=== PATIENT | female | born 1950 | race Caucasian/White ===

== ENCOUNTER 2020-08-15 07:57 | Emergency (ER) | payer MEDICARE, SELFPAY ==
[2020-08-15 08:11] VITALS: BP 168/71; PULSE 90; RESP 18; TEMP 36.7; O2SAT 99
[2020-08-15] MEDS: ONDANSETRON 4 MG/2 ML INJ IV (08:20)
[2020-08-15] MEDS: SODIUM CHLORIDE 0.9% 1,000 ML 1000 ML IV (08:20)
--- NOTE | 2020-08-15 08:21 | DI.RAD.S_ITS ---
PROCEDURE: XR ACUTE ABDOMEN SERIES INDICATIONS: vomiting 4-5 days, dehydrated TECHNIQUE: One view chest and two views of the abdomen were acquired. COMPARISON: None. FINDINGS: Surgical changes and devices: Cholecystectomy clips are seen. Chest: Lungs are clear. Heart size is normal. No pleural effusions. No pneumoperitoneum. Abdomen: Bowel gas pattern is normal. No suspicious calcifications. Visualized solid organ contours appear normal. Bones: No suspicious bony lesions. S-shaped scoliotic curvature is seen. Age-appropriate bony degenerative changes are seen. IMPRESSION: A nonobstructive bowel gas pattern is seen. As clinically appropriate, please consider a repeat plain film study or a dedicated CT of the abdomen and pelvis, if the patient's symptoms persist or worsen. Postoperative and degenerative changes are seen. Dictated by: Fransisco Carey M.D. on 08/15/2020 at 8:17 Approved by: Fransisco Carey M.D. on 08/15/2020 at 8:17
--- NOTE | 2020-08-15 08:23 | ED_ITS ---
HPI - Nausea/Vomiting/Diarrhea General Chief complaint: Weakness Stated complaint: vomiting 4-5days, dehydrated Time Seen by Provider: 08/15/20 08:13 Source: patient Mode of arrival: Wheelchair Limitations: no limitations History of Present Illness HPI Narrative: This is a 70-year-old female comes emergency department with complaint of vomiting for the past 4-5 days. Patient was concerned she may be dehydrated. Patient states that her and her flew from [place] to visit the state and the family member in [place]. She has not seen that family member yet. She states while she was flying she started throwing up. Since then she has continued to have vomiting intermittently daily. Overnight she th rew up 3 times. Patient states she has had some small stools but not anything significant she has not appreciated any diarrhea. She is unsure if she is passing gas regularly. She denies any headache, chest pain, back pain, flank pain or abdominal pain. She states she is really feel nauseated she just throws up. She denies any fevers, she denies any cold cough or congestion like symptoms. No rashes or skin changes. She denies any urinary symptoms. She states she has been making urine has been clear. She has not had similar symptoms in the past. She does take medication for blood pressure, dyslipidemia and diabetes type 2. She does not take an aspirin or any other blood thinners. She denies any cardiac history otherwise and denies any prior cardiac stents or catheterization. She has had a cholecystectomy. Denies any tobacco, alcohol or illicit. She lives in [place] with her who is in the room with her. Related Data Home Medications Medication Instructions Recorded Confirmed metoprolol tartrate 25 mg PO DAILY 08/15/20 08/15/20 omeprazole 40 mg PO DAILY 08/15/20 08/15/20 simvastatin [Zocor] 20 mg PO DAILY 08/15/20 08/15/20 sitagliptin-metformin [Janumet] 1 tab PO DAILY 08/15/20 08/15/20 valsartan-hydrochlorothiazide 1 tab PO DAILY 08/15/20 08/15/20 [Diovan HCT] Allergies Allergy/AdvReac Type Severity Reaction Status Date / Time No Known Drug Allergies Allergy Verified 08/15/20 08:18 Review of Systems Review of Systems ROS Unobtainable: All systems reviewed & are unremarkable except as noted in HPI and below Constitutional Constitutional: Denies chills, Denies fever(s), Denies lethargy and Denies weakness Neurologic Neurologic: Denies weakness Patient History Medical History (Updated 08/15/20 @ 09:15 by Isela Carter DO) Diabetes (Acute) Dyslipidemia (Acute) Hypertension (Acute) Surgical History (Updated 08/15/20 @ 08:27 by Isela Carter DO) Hx of cholecystectomy (Acute) Social History (Updated 08/15/20 @ 08:28 by Isela Carter DO) marital status: household members: spouse Smoking Status: Never smoker Smoking Status: Never smoker alcohol intake frequency: other (denies) Substance Use Type: does not use Exam Narrative Exam Narrative: GEN: well nourished, well appearing obese female, alert and oriented x 3, patient appears to be in mild distress. HEENT: Atraumatic, pupils are equal round reactive to light, extraocular movements are intact, nares are clear. HEART: Regular rate and rhythm without murmur, clicks, rubs. LUNGS:Lungs clear to auscultation, no wheezes, rales, crackles, chest moves symmetrically, no crackles wheezes or rales, no accessory muscle use ABD:bowel sounds normal, nondistended, soft, non-tender, no guarding, rebound, rigidity, no masses noted, no hepatosplenomegaly :No CVA tenderness, MSCL: Non-tender, no muscle atrophy, muscles strength 5/5 upper and lower extremities, full range of motion, normal gait NEURO:CN 2-12 intact, sensation normal. SKIN: No turgor, small area of ecchymosis on the anterior rose that is 2.5 cm in size with no hematoma. Initial Vital Signs Initial Vital Signs: Vital Signs Temperature 98.1 F 08/15/20 08:11 Pulse Rate 90 08/15/20 08:11 Respiratory Rate 18 08/15/20 08:11 Blood Pressure 168/71 H 08/15/20 08:11 Pulse Oximetry 99 08/15/20 08:11 Course Orders Ordered: Discontinued Medications Sodium Chloride (Normal Saline 0.9%) 1,000 mls @ 1,000 mls/hr IV BOLUS ONE Stop: 08/15/20 09:17 Last Infusion: 08/15/20 10:07 Dose: 0 mls/hr Documented by: Admin: 08/15/20 08:20 Dose: 1,000 mls/hr Documented by: UGO Sodium Chloride (Normal Saline 0.9%) 1,000 mls @ 1,000 mls/hr IV BOLUS ONE Stop: 08/15/20 09:20 Last Admin: 08/15/20 10:13 Dose: Not Given Documented by: UGO Sodium Chloride (Normal Saline 0.9%) 1,000 mls @ 150 mls/hr IV CONT BRAYAN Last Admin: 08/15/20 10:08 Dose: 150 mls/hr Documented by: UGO Ondansetron HCl (Zofran) 4 mg IV NOW ONE Stop: 08/15/20 08:10 Last Admin: 08/15/20 08:20 Dose: 4 mg Documented by: UGO Reevaluation(s) Reevaluation #1: Patient updated on labs, she states she had labs checked 2 months ago and they were normal with her primary care will attempt to get labs but weekends primary care office so they are likely closed. Discussed with patient will be placing a Taylor catheter and adding a CT scan for further ev aluation and plan to admit or transfer patient depending on findings. Patient aware and comfortable with plan. Time: 09:07 Reevaluation #2: Patient doing well, she has not had any urine output at this time. She has had 1L in addition to several 100 cc of fluid. Time: 11:18 Reevaluation #3: Spoke with Dr. Ye from [facility] who accepts for transfer. Reviewed all labs and imaging. Patient has not had any urine output, plan to continue fluids at 150cc/hr. Time: 11:49 Consultations Consultation #1: Spoke with Dr. Norman, who defers admission here and would like us to try elsewhere with nephrology is patient creatinine is quite elevated. She has a low-sodium but otherwise normal electrolytes but has not made any urine output so far and Dr. Norman is concerned she may potentially need dialysis down the road. Time: 11:29 Vital Signs Vital signs: Vital Signs - 8 hr 08/15/20 13:19 Pulse Rate 89 Respiratory Rate 18 Blood Pressure 127/61 Pulse Oximetry 99 MDM - Nausea/Vomiting/Diarrhea Lab Data Attestation: I reviewed the patient's lab results. Result diagrams: 08/15/20 08:15 08/15/20 08:15 Labs: Lab Results 08/15/20 08/15/20 08/15/20 Range/Units 08:15 08:15 08:15 WBC 8.9 (4.5-11.0) X10^3/uL RBC 4.20 (4.0-5.2) X10^6/uL Hgb 11.6 L (12.0-16.0) g/dL Hct 35.3 L (36-46) % MCV 84.1 (80-100) fL MCH 27.6 (26-34) PG MCHC 32.9 (30-36) % RDW 13.7 (11.6-14.8) % Plt Count 236 (150-400) X10^3/uL Neut % (Auto) 69.5 (50-75) % Lymph % (Auto) 21.7 L (25-40) % [place] % (Auto) 7.4 (3-14) % Eos % (Auto) 0.9 L (2-4) % Baso % (Auto) 0.5 (0-2) % Neut # (Auto) 6200 (9146-5796) /uL Lymph # (Auto) 1900 (1766-0229) /uL [place] # (Auto) 700 (0-900) /uL Eos # (Auto) 100 (0-450) /uL Baso # (Auto) 0 (0-100) /uL PT 11.4 (10.1-12.7) SECONDS INR 1.0 (0.9-1.3) APTT 32 (26.4-36.2) SECONDS Sodium 130 L (137-145) mmol/L Potassium 3.9 (3.4-5.1) mmol/L Chloride 99 (98-107) mmol/L Carbon Dioxide 16 L (22-32) mmol/L BUN 58 H (7-17) mg/dL Creatinine 10.82 H* (0.52-1.04) mg/dL Estimated GFR 3.5 L (>60) mL/min BUN/Creatinine Ratio 5.4 L (6-22) Glucose 132 H (80-110) mg/dL Calcium 8.4 (8.4-10.2) mg/dL Total Bilirubin 0.4 (0.2-1.3) mg/dL AST 25 (14-36) IU/L ALT 12 (<35) IU/L Alkaline Phosphatase 65 (38-126) U/L Total Protein 6.9 (6.3-8.2) g/dL Albumin 3.9 (3.5-5.0) g/dL Globulin 3.0 (1.7-4.1) g/dL Albumin/Globulin Ratio 1.3 (1.0-2.8) Lipase 112 (23-300) U/L TSH (0.47-4.68) uIU/mL COVID-19 PCR (Negative) 08/15/20 08/15/20 Range/Units 08:15 08:27 WBC (4.5-11.0) X10^3/uL RBC (4.0-5.2) X10^6/uL Hgb (12.0-16.0) g/dL Hct (36-46) % MCV (80-100) fL MCH (26-34) PG MCHC (30-36) % RDW (11.6-14.8) % Plt Count (150-400) X10^3/uL Neut % (Auto) (50-75) % Lymph % (Auto) (25-40) % [place] % (Auto) (3-14) % Eos % (Auto) (2-4) % Baso % (Auto) (0-2) % Neut # (Auto) (0476-9452) /uL Lymph # (Auto) (3539-6179) /uL [place] # (Auto) (0-900) /uL Eos # (Auto) (0-450) /uL Baso # (Auto) (0-100) /uL PT (10.1-12.7) SECONDS INR (0.9-1.3) APTT (26.4-36.2) SECONDS Sodium (137-145) mmol/L Potassium (3.4-5.1) mmol/L Chloride (98-107) mmol/L Carbon Dioxide (22-32) mmol/L BUN (7-17) mg/dL Creatinine (0.52-1.04) mg/dL Estimated GFR (>60) mL/min BUN/Creatinine Ratio (6-22) Glucose (80-110) mg/dL Calcium (8.4-10.2) mg/dL Total Bilirubin (0.2-1.3) mg/dL AST (14-36) IU/L ALT (<35) IU/L Alkaline Phosphatase (38-126) U/L Total Protein (6.3-8.2) g/dL Albumin (3.5-5.0) g/dL Globulin (1.7-4.1) g/dL Albumin/Globulin Ratio (1.0-2.8) Lipase (23-300) U/L TSH 0.712 (0.47-4.68) uIU/mL COVID-19 PCR Negative (Negative) Imaging Data CT scan - abdomen/pelvis: Radiologist's Impression: Ana Flynn 70 F [address] [address] [address] Scan Report Signed Patient: Venita Flynn#: [id number] : 1950cct:[id number] Age/Sex: 70 / FDate of Service: 08/15/20 Loc: ED Accession Number: [id number] Procedure: CT kidney ureter bladder (KUB) Ordering Provider: Isela Carter D.O. PROCEDURE: CT KIDNEY URETER BLADDER (KUB) INDICATIONS: acute renal failure, vomiting TECHNIQUE: Noncontrast 5 mm thick sections acquired from the diaphragms to the symphysis. 5 mm thick coronal and sagittal reformats were then performed. For radiation dose reduction, the following was used: automated exposure control, adjustment of mA and/or kV according to patient size. COMPARISON: Located Within [facility], CR, XR ACUTE ABDOMEN SERIES, 08/15/2020, 8:26. FINDINGS: Image quality: Excellent. Lung bases: Lung bases are clear. Heart size is normal. Urinary system: Both kidneys are normal in size. No kidney stones. No hydronephrosis or perinephric fat stranding. Both ureters appear non-dilated throughout their expected courses. Mild bilateral perinephric fat stranding is seen, which is attributed to senescent Maciel living. A Taylor catheter is seen, decompressing the bladder. Other solid organs: Liver is normal in size. Gallbladder has been removed. Moderate biliary gas is seen. Pancreas is normal in contours. Spleen is normal in size. No adrenal nodules. Peritoneum and bowel: Generalized nodular thickening can be seen of the proximal colon, where there is fatty metaplasia. The more distal colon is decompressed. Postoperative change can be seen involving the right lower quadrant. Unenhanced bowel loops otherwise demonstrate normal wall thickness and caliber. No free fluid or air. Nodes and vessels: No retroperitoneal or mesenteric adenopathy by size cri teria. Aorta and inferior vena cava are normal in caliber. Abdominal wall: There is a moderately sized supraumbilical, fat containing hernia is seen. Pelvis: No free pelvic fluid. No inguinal hernias or adenopathy. This patient is status post hysterectomy. No adnexal masses are seen. Bones: No suspicious bony lesions. No vertebral body compression fractures. Mild levoconvex scoliotic curvature is noted. Degenerative changes are seen throughout, which are most prominent involving the lumbar spine. This patient has transitional lumbar anatomy. For the purposes of this examination, the level with the tiny vestigial ribs is considered to be T12. By this numbering scheme, the L5 level is transitional and highly sacralized on the left side. IMPRESSION: No hydronephrosis is seen. No kidney stones are seen. Nodular thickening with fatty metaplasia is seen involving the proximal colon, with right lower quadrant postoperative change. Please correlate with patient history, including a history of inflammatory bowel disease. If there is no history of inflammatory bowel disease, please consider colitis. 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 Dictated by: Fransisco Carey M.D. on 08/15/2020 at 9:55 Approved by: Fransisco Carey M.D. on 08/15/2020 at 10:01 ECG Data Attestation: I personally reviewed and interpreted this ECG as follows: Prior ECG tracings: not available for review Interpretation: Sinus rhythm rate 89 ,DC 180 QRS of 68 QTC of 442. No S1Q3T3, no ST elevation appreciated. No priors available for comparison. MDM Narrative Medical decision making narrative: Patient comes in with complaint of and conc erasmo for dehydration. She states she has been urinating but has not had much in the way of bowel movements. CT KUB was ordered after her labs show a creatinine of 10, she does not have hyperkalemia but does have hyponatremia. Patient is on several medications with combination with her vomiting and dehydration that are likely contributing to her acute renal failure. Per patient she had labs 2 mo nths ago although we were not able to obtain these that were normal although unclear if they did a BUN and creatinine at that time. Patient states she has never been told that she had any sort of renal failure or kidney disease. Discharge Plan Departure Patient Disposition: [facility] Clinical Impression: Acute renal failure, Hyponatremia Discharge Date/Time: 08/15/20 13:21 Prescriptions: No Action valsartan-hydrochlorothiazide [Diovan HCT] 160-12.5 mg tablet 1 tab PO DAILY RF: 0 Janumet 50-1,000 mg tablet 1 tab PO DAILY RF: 0 omeprazole 40 mg capsule,delayed release(DR/EC) 40 mg PO DAILY RF: 0 simvastatin [Zocor] 20 mg tablet 20 mg PO DAILY RF: 0 metoprolol tartrate 25 mg tablet 25 mg PO DAILY RF: 0
[2020-08-15 08:24] LABS: Add Manual Diff / Slide Review NO; Basophils Absolute Auto 0 /uL (0-100); Basophils Percent Auto 0.5 % (0-2); Eosinophils Absolute Auto 100 /uL (0-450); Eosinophils Percent Auto 0.9 % (2-4); Hematocrit 35.3 % (36-46); Hemoglobin 11.6 g/dL (12.0-16.0); Lymphocytes Absolute Auto 1900 /uL (1100-4500); Lymphocytes Percent Auto 21.7 % (25-40); Mean Corpuscular HGB Conc 32.9 % (30-36); Mean Corpuscular Hemoglobin 27.6 PG (26-34); Mean Corpuscular Volume 84.1 fL (80-100); Monocytes Absolute Auto 700 /uL (0-900); Monocytes Percent Auto 7.4 % (3-14); Neutrophils Absolute Auto 6200 /uL (1500-7000); Neutrophils Percent Auto 69.5 % (50-75); Platelet Count 236 X10^3/uL (150-400); Red Cell Distribution Width 13.7 % (11.6-14.8); White Blood Cell Count 8.9 X10^3/uL (4.5-11.0)
[2020-08-15 08:34] LABS: Prothrombin Time 11.4 SECONDS (10.1-12.7)
[2020-08-15 08:36] LABS: PTT Partial Thromboplastin Tim 32 SECONDS (26.4-36.2)
[2020-08-15 08:39] LABS: Alanine Aminotransferase 12 IU/L (<35); Albumin 3.9 g/dL (3.5-5.0); Albumin Globulin Ratio 1.3 (1.0-2.8); Alkaline Phosphatase 65 U/L (38-126); Aspartate Aminotransferase 25 IU/L (14-36); BUN Creatinine Ratio 5.4 (6-22); Bilirubin Total 0.4 mg/dL (0.2-1.3); Blood Urea Nitrogen 58 mg/dL (7-17); Calcium 8.4 mg/dL (8.4-10.2); Carbon Dioxide 16 mmol/L (22-32); Chloride 99 mmol/L (98-107); Estimated Glomerular Filt Rate 3.5 mL/min (>60); Glucose 132 mg/dL (80-110); HEMOLYSIS 33 (0-50); Lipase 112 U/L (23-300); Potassium 3.9 mmol/L (3.4-5.1); Sodium 130 mmol/L (137-145); Total Protein 6.9 g/dL (6.3-8.2)
--- NOTE | 2020-08-15 08:44 | DI.CT.S_ITS ---
PROCEDURE: CT KIDNEY URETER BLADDER (KUB) INDICATIONS: acute renal failure, vomiting TECHNIQUE: Noncontrast 5 mm thick sections acquired from the diaphragms to the symphysis. 5 mm thick coronal and sagittal reformats were then performed. For radiation dose reduction, the following was used: automated exposure control, adjustment of mA and/or kV according to patient size. COMPARISON: [facility], CR, XR ACUTE ABDOMEN SERIES, 08/15/2020, 8:26. FINDINGS: Image quality: Excellent. Lung bases: Lung bases are clear. Heart size is normal. Urinary system: Both kidneys are normal in size. No kidney stones. No hydronephrosis or perinephric fat stranding. Both ureters appear non-dilated throughout their expected courses. Mild bilateral perinephric fat stranding is seen, which is attributed to senescent Maciel living. A Taylor catheter is seen, decompressing the bladder. Other solid organs: Liver is normal in size. Gallbladder has been removed. Moderate biliary gas is seen. Pancreas is normal in contours. Spleen is normal in size. No adrenal nodules. Peritoneum and bowel: Generalized nodular thickening can be seen of the proximal colon, where there is fatty metaplasia. The more distal colon is decompressed. Postoperative change can be seen involving the right lower quadrant. Unenhanced bowel loops otherwise demonstrate normal wall thickness and caliber. No free fluid or air. Nodes and vessels: No retroperitoneal or mesenteric adenopathy by size criteria. Aorta and inferior vena cava are normal in caliber. Abdominal wall: There is a moderately sized supraumbilical, fat containing hernia is seen. Pelvis: No free pelvic fluid. No inguinal hernias or adenopathy. This patient is status post hysterectomy. No adnexal masses are seen. Bones: No suspicious bony lesions. No vertebral body compression fractures. Mild levoconvex scoliotic curvature is noted. Degenerative changes are seen throughout, which are most prominent involving the lumbar spine. This patient has transitional lumbar anatomy. For the purposes of this examination, the level with the tiny vestigial ribs is considered to be T12. By this numbering scheme, the L5 level is transitional and highly sacralized on the left side. IMPRESSION: No hydronephrosis is seen. No kidney stones are seen. Nodular thickening with fatty metaplasia is seen involving the proximal colon, with right lower quadrant postoperative change. Please correlate with patient history, including a history of inflammatory bowel disease. If there is no history of inflammatory bowel disease, please consider colitis. 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 Dictated by: Fransisco Carey M.D. on 08/15/2020 at 9:55 Approved by: Fransisco Carey M.D. on 08/15/2020 at 10:01
[2020-08-15 09:14] LABS: COVID19 -Nasal RAPID Negative (Negative)
[2020-08-15 09:41] VITALS: BP 128/60; PULSE 91; O2SAT 100
[2020-08-15 10:00] VITALS: BP 123/59; PULSE 95; O2SAT 99
[2020-08-15] MEDS: SODIUM CHLORIDE 0.9% 1,000 ML 150 ML IV (10:08)
[2020-08-15 13:19] VITALS: BP 127/61; PULSE 89; RESP 18; O2SAT 99
[2020-08-15 13:21] LABS: Thyroid Stimulating Hormone 0.712 uIU/mL (0.47-4.68)
== END 2020-08-15 13:21 | disposition short-term general hospital (02) ==
PROVIDERS: Emergency Provider Emergency Medicine
DX: K72.00 Acute and subacute hepatic failure without coma (principal); E87.1 Hypo-osmolality and hyponatremia; I10 Essential (primary) hypertension; E78.5 Hyperlipidemia, unspecified; E11.9 Type 2 diabetes mellitus without complications
CPT/HCPCS: 36415; 51701; 74022; 74176; 80053; 83690; 84443; 85025; 85610; 85730; 87635; 93005; 96365; 96366; 96375; 99284; J2405